=== PATIENT | female | born 1970 | race African-American/Black ===

== ENCOUNTER 2019-05-13 07:05 | Day surgery (SDC) | payer OTHER ==
[2019-05-13] MEDS ORDERED: IRON SUCROSE INJECTION 200 MG in SODIUM CHLORIDE 100 ML IVPB ONE (10:00)
[2019-05-13 17:31] VITALS: PULSE 72; TEMP 99.1
[2019-05-13 17:33] VITALS: BP 119/58
== END 2019-05-13 14:45 | disposition home or self-care (01) ==
LOC: JONCNONCHE 07:05 → J7W 12:19 → JONCNONCHE 14:45
PROVIDERS: ATTEND Internal Medicine Hematology & Oncology
PROC: 3E033GC Introduction of Other Therapeutic Substance into Peripheral Vein, Percutaneous Approach (ICD-10-PCS; principal; 2019-05-13)
DX: D50.9 Iron deficiency anemia, unspecified (principal)
CPT/HCPCS: 96365; 96372; J1756

== ENCOUNTER 2019-05-20 05:23 | Day surgery (SDC) | payer OTHER ==
[2019-05-20] MEDS ORDERED: IRON SUCROSE INJECTION 200 MG in SODIUM CHLORIDE 100 ML IVPB ONE (10:00)
[2019-05-20 15:30] VITALS: PULSE 76; TEMP 98.8
[2019-05-20 15:31] VITALS: BP 120/51
== END 2019-05-20 13:40 | disposition home or self-care (01) ==
LOC: JONCNONCHE 05:23 → J7W 12:37 → JONCNONCHE 13:40
PROVIDERS: ATTEND Internal Medicine Hematology & Oncology
PROC: 3E033GC Introduction of Other Therapeutic Substance into Peripheral Vein, Percutaneous Approach (ICD-10-PCS; principal; 2019-05-20)
DX: D50.9 Iron deficiency anemia, unspecified (principal)
CPT/HCPCS: 96365; J1756

== ENCOUNTER 2019-05-27 05:32 | Day surgery (SDC) | payer OTHER ==
[2019-05-27] MEDS ORDERED: IRON SUCROSE INJECTION 200 MG in SODIUM CHLORIDE 100 ML IVPB ONE (10:00)
[2019-05-27 14:02] VITALS: BP 102/45; PULSE 67; TEMP 98.2
== END 2019-05-27 13:30 | disposition home or self-care (01) ==
LOC: JONCNONCHE 05:32 → J7W 12:25 → JONCNONCHE 13:30
PROVIDERS: ATTEND Internal Medicine Hematology & Oncology
PROC: 3E033GC Introduction of Other Therapeutic Substance into Peripheral Vein, Percutaneous Approach (ICD-10-PCS; principal; 2019-05-27)
DX: D50.9 Iron deficiency anemia, unspecified (principal)
CPT/HCPCS: 96365; J1756

== ENCOUNTER 2019-06-03 06:35 | Day surgery (SDC) | payer OTHER ==
[2019-06-03] MEDS ORDERED: IRON SUCROSE INJECTION 200 MG in SODIUM CHLORIDE 100 ML IVPB ONE (10:00)
[2019-06-03 14:56] VITALS: BP 127/72; PULSE 75; TEMP 98.8
== END 2019-06-03 13:50 | disposition home or self-care (01) ==
LOC: JONCCHEMO 06:35 → J7W 12:40 → JONCCHEMO 13:50
PROVIDERS: ATTEND Internal Medicine Hematology & Oncology
PROC: 3E033GC Introduction of Other Therapeutic Substance into Peripheral Vein, Percutaneous Approach (ICD-10-PCS; principal; 2019-06-03)
DX: D50.9 Iron deficiency anemia, unspecified (principal)
CPT/HCPCS: 96365; J1756

== ENCOUNTER 2020-09-27 06:00 | Day surgery (SDC) | payer BC ==
[2020-09-27] MEDS ORDERED: IRON SUCROSE INJECTION 200 MG in SODIUM CHLORIDE 100 ML IVPB ONE (09:30)
[2020-09-27 15:12] VITALS: BP 127/73; PULSE 81; TEMP 98.6
== END 2020-09-27 11:00 | disposition home or self-care (01) ==
LOC: JONCNONCHE 06:00
PROVIDERS: ATTEND Internal Medicine Hematology & Oncology
PROC: 3E033GC Introduction of Other Therapeutic Substance into Peripheral Vein, Percutaneous Approach (ICD-10-PCS; principal; 2020-09-27)
DX: D50.9 Iron deficiency anemia, unspecified (principal)
CPT/HCPCS: 96365; J1756

== ENCOUNTER 2020-10-10 06:01 | Day surgery (SDC) | payer BC ==
[2020-10-10] MEDS ORDERED: IRON SUCROSE INJECTION 200 MG in SODIUM CHLORIDE 100 ML IVPB ONE (10:00)
[2020-10-10 16:52] VITALS: BP 149/76; PULSE 79; TEMP 98.8
== END 2020-10-10 11:00 | disposition home or self-care (01) ==
LOC: JONCNONCHE 06:01
PROVIDERS: ATTEND Internal Medicine Hematology & Oncology
PROC: 3E033GC Introduction of Other Therapeutic Substance into Peripheral Vein, Percutaneous Approach (ICD-10-PCS; principal; 2020-10-10)
DX: D50.9 Iron deficiency anemia, unspecified (principal)
CPT/HCPCS: 96365; J1756

== ENCOUNTER 2020-10-18 08:12 | Day surgery (SDC) | payer BC ==
[2020-10-18] MEDS ORDERED: IRON SUCROSE INJECTION 200 MG in SODIUM CHLORIDE 100 ML IVPB ONE (10:00)
[2020-10-18 12:24] VITALS: TEMP 98.4
[2020-10-18 12:45] VITALS: BP 127/79; PULSE 82
== END 2020-10-18 11:05 | disposition home or self-care (01) ==
LOC: JONCNONCHE 08:12
PROVIDERS: ATTEND Internal Medicine Hematology & Oncology
PROC: 3E033GC Introduction of Other Therapeutic Substance into Peripheral Vein, Percutaneous Approach (ICD-10-PCS; principal; 2020-10-18)
DX: D50.9 Iron deficiency anemia, unspecified (principal)
CPT/HCPCS: 96365; J1756

== ENCOUNTER 2020-10-25 08:23 | Day surgery (SDC) | payer BC ==
[2020-10-25] MEDS ORDERED: IRON SUCROSE INJECTION 200 MG in SODIUM CHLORIDE 100 ML IVPB ONE (10:00)
[2020-10-25 14:51] VITALS: TEMP 98.4
[2020-10-25 14:54] VITALS: BP 128/68; PULSE 83
== END 2020-10-25 11:00 | disposition home or self-care (01) ==
LOC: JONCNONCHE 08:23
PROVIDERS: ATTEND Internal Medicine Hematology & Oncology
PROC: 3E033GC Introduction of Other Therapeutic Substance into Peripheral Vein, Percutaneous Approach (ICD-10-PCS; principal; 2020-10-25)
DX: D50.9 Iron deficiency anemia, unspecified (principal)
CPT/HCPCS: 96365; 96375; J1756